=== PATIENT | female | born 1995 ===

== ENCOUNTER 2021-09-27 00:01 | Inpatient (IN) | payer OTHER, SELFPAY ==
[2021-09-27] MEDS ORDERED: metroNIDAZOLE 500 MG/100 ML BAG ONE (00:32)
[2021-09-27] MEDS ORDERED: Fentanyl 100 MCG/2 ML VIAL ONE ×4 (00:32→16:00)
[2021-09-27] MEDS ORDERED: Ondansetron PF 4 MG/2 ML Vial IVP PRN (01:28)
[2021-09-27] MEDS ORDERED: HYDROmorphone 0.5 MG/0.5 ML SYRINGE ONE ×3 (01:28→02:10)
[2021-09-27] MEDS ORDERED: Ondansetron ODT 4 MG TAB PO PRN (01:28)
[2021-09-27] MEDS ORDERED: Dextrose 50% Abboject 50 ML SYRINGE SLOW IVP PRN (01:28)
[2021-09-27] MEDS ORDERED: Dextrose 5% in Water 1,000 ML IV PRN (01:28)
[2021-09-27] MEDS ORDERED: traMADol HCl 50 MG TAB PO PRN (01:33)
[2021-09-27 01:39] LABS: #Basophils 0.1 thou/uL (0.0-0.2); #Eosinphils 0.1 thou/uL (0.0-0.7); #Lymphocytes 1.8 thou/uL (1.20-3.40); #Monocytes 0.6 thou/uL (0.11-0.59); #Neutrophils 5.8 thou/uL (1.40-6.50); %Basophils 0.7 % (0.0-1.0); %Eosinophils 0.7 % (0.0-10.0); %Monocytes 6.7 % (0.0-10.0); %Neutrophils 69.9 % (42.0-75.0); Hemoglobin 13.3 g/dL (12.0-16.0); Mean Corpuscular HGB CONC 32.8 g/dL (32.0-36.0); Mean Corpuscular Hemoglobin 30.8 pg (27.0-31.0); Mean Corpuscular Volume 94.1 fL (78.0-98.0); Mean Platelet Volume 9.9 fL (7.4-10.4); Platelet Count 139 thou/uL (130-400); RBC Distribution Width 11.3 % (11.5-14.5); Red Blood Cell (RBC) Count 4.32 mill/uL (4.20-5.40); White Blood Cell (WBC) Count 8.3 thou/uL (4.8-10.8)
[2021-09-27 01:40] LABS: BHCG - Serum Negative (NEGATIVE); Pregs Control Background? CLEAR/WHITE (CLR/WHITE); Pregs Control Bar Appear? YES (CONTROL BAR)
[2021-09-27 01:53] LABS: ALT (SGPT) 14 U/L (8-55); AST (SGOT) 19 U/L (5-34); Albumin 4.4 g/dL (3.5-5.0); Alkaline Phosphatase 58 U/L (40-110); Anion Gap 15 mmol/L (10-20); BUN (Urea Nitrogen) 18 mg/dL (7.0-18.7); Bilirubin, Total 0.6 mg/dL (0.2-1.2); Calc. Creatinine Clearance 0 mL/min (70-130); Calcium 9.6 mg/dL (7.8-10.44); Carbon Dioxide 23 mmol/L (22-29); Chloride 105 mmol/L (98-107); Estimated GFR 81; Globulin 2.4 g/dL (2.4-3.5); Glucose 94 mg/dL (70-105); Potassium 3.8 mmol/L (3.5-5.1); Protein, Total 6.8 g/dL (6.0-8.3); Sodium 139 mmol/L (136-145)
[2021-09-27] MEDS ORDERED: Ibuprofen 200 MG TAB PO SCH (02:00)
[2021-09-27] MEDS: Acetaminophen 500 MG TAB PO SCH ×5 (03:21→23:29)
[2021-09-27] MEDS: traMADol HCl 50 MG TAB PO SCH ×5 (04:10→23:30)
[2021-09-27] MEDS: Lactated Ringer's 1,000 ML IV SCH ×2 (04:10→16:26)
[2021-09-27 05:05] VITALS: BMI 22.7
[2021-09-27 05:54] LABS: SARS-CoV-2 NAA Rapid Test Not Detected (NotDetected)
[2021-09-27] MEDS: Morphine 2 MG/ML VIAL SLOW IVP PRN ×2 (06:20→18:48)
[2021-09-27] MEDS ORDERED: metroNIDAZOLE 500 MG in Premix Bag 1 BAG IVPB SCH (08:00)
[2021-09-27] MEDS ORDERED: CEFAZOLIN 2 GM in Sodium Chloride 0.9% 100 ML IVPB SCH ×3 (08:00→15:15)
[2021-09-27] MEDS: Gabapentin 300 MG CAP PO SCH ×3 (09:14→21:03)
[2021-09-27] MEDS: Famotidine 20 MG TAB PO SCH ×2 (09:16→21:04)
[2021-09-27] MEDS: Ascorbic Acid 500 mg Chewable Tablet PO SCH (09:17)
[2021-09-27] MEDS ORDERED: Ondansetron HCl/PF 4 MG/2 ML Vial IVP PRN (11:49)
[2021-09-27] MEDS ORDERED: Promethazine HCl 25 MG/ML VIAL IVPB PRN (11:49)
[2021-09-27] MEDS ORDERED: Promethazine HCl 25 MG/ML VIAL IM PRN (11:49)
[2021-09-27] MEDS ORDERED: CEFAZOLIN 2 GM VIAL ONE (11:56)
[2021-09-27] MEDS ORDERED: Sodium Chloride 0.9% 100 ML ONE (11:56)
[2021-09-27] MEDS ORDERED: fentaNYL Citrate/PF 100 MCG/2 ML SYRINGE ONE ×2 (12:05→13:31)
[2021-09-27] MEDS ORDERED: Metoclopramide HCl 10 MG/2 ML VIAL ONE (13:10)
[2021-09-27] MEDS ORDERED: Ketorolac Tromethamine 30 MG/ML VIAL ONE (13:10)
[2021-09-27] MEDS ORDERED: Dexamethasone 20 MG/5 ML VIAL ONE (13:10)
[2021-09-27] MEDS ORDERED: Ondansetron PF 4 MG/2 ML Vial ONE (13:10)
[2021-09-27] MEDS ORDERED: PROPOFOL 200 MG/20 ML VIAL ONE (13:10)
[2021-09-27] MEDS: Ibuprofen 200 MG TAB PO SCH ×2 (14:29→21:04)
[2021-09-27] MEDS ORDERED: Gentamicin 80 MG/2 ML VIAL IVPB SCH (21:00)
[2021-09-28] MEDS: Lactated Ringer's 1,000 ML IV SCH (02:16)
[2021-09-28] MEDS: Acetaminophen 500 MG TAB PO SCH ×3 (05:20→17:06)
[2021-09-28] MEDS: Ibuprofen 200 MG TAB PO SCH ×3 (05:21→20:55)
[2021-09-28] MEDS: traMADol HCl 50 MG TAB PO SCH ×3 (05:21→17:06)
[2021-09-28] MEDS: Ascorbic Acid 500 mg Chewable Tablet PO SCH (08:46)
[2021-09-28] MEDS: Enoxaparin Sodium 40 MG/0.4 ML SYRINGE SC SCH (08:46)
[2021-09-28] MEDS: Gabapentin 300 MG CAP PO SCH ×3 (08:46→20:56)
[2021-09-28] MEDS: Famotidine 20 MG TAB PO SCH ×2 (08:46→20:55)
[2021-09-28] MEDS ORDERED: Cyclobenzaprine 10 MG TAB PO PRN (14:13)
[2021-09-29] MEDS: Acetaminophen 500 MG TAB PO SCH ×3 (00:03→12:03)
[2021-09-29] MEDS: traMADol HCl 50 MG TAB PO SCH ×3 (00:04→12:02)
[2021-09-29] MEDS: Ibuprofen 200 MG TAB PO SCH ×2 (05:26→15:03)
[2021-09-29] MEDS: Gabapentin 300 MG CAP PO SCH ×2 (08:48→15:03)
[2021-09-29] MEDS: Ascorbic Acid 500 mg Chewable Tablet PO SCH (08:48)
[2021-09-29] MEDS: Enoxaparin Sodium 40 MG/0.4 ML SYRINGE SC SCH (08:48)
[2021-09-29] MEDS: Famotidine 20 MG TAB PO SCH (08:48)
[2021-09-29 12:04] VITALS: BP 114/73; TEMP 98.7
== END 2021-09-29 15:30 | disposition home or self-care (01) | DRG 492 ==
LOC: ERS 00:01 → SURG A 01:27
PROVIDERS: ADMIT Specialist; ATTEND Specialist
PROC: 0QSH04Z Reposition Left Tibia with Internal Fixation Device, Open Approach (ICD-10-PCS; principal; 2021-09-27)
DX: S82.302B Unspecified fracture of lower end of left tibia, initial encounter for open fracture type I or II (principal); S82.832B Other fracture of upper and lower end of left fibula, initial encounter for open fracture type I or II; Z20.822 Contact with and (suspected) exposure to COVID-19; Y92.9 Unspecified place or not applicable; Z88.8 Allergy status to other drugs, medicaments and biological substances
CPT/HCPCS: 27752; 36415; 71045; 76000; 80053; 80170; 84703; 85025; 86850; 86900; 86901; 96365; 96375; 96376; C1713; G0390; J0690; J1100; J1170; J1580; J1650; J1885; J2270; J2405; J2704; J2765; J3010; J3490; U0002